=== PATIENT | male | born 1985 | race Caucasian/White ===

== ENCOUNTER 2016-09-18 10:00 | Inpatient (IN) | payer OTHER ==
--- NOTE | ~2016-09-18 | HP ---
Unit #: [id number] #: [id number] Patient: BRO MENDOSA [id number] [place] [address] [id number] MR#: [id number] NAME: BRO MENDOSA ROOM: P255 Age: 30 Sex: M Admission Date: 09/18/2016 : 1985 Attending Physician: Hernesto Meza M.D. Admitting Physician: Hernesto Meza M.D. Primary Care Physician: Primary Care Physician No HISTORY AND PHYSICAL Bro is a 30 year old who was admitted and discharged within the first 24 hours. He was not seen for an H and P. Dictated by... Roseline Saeed P.A.-C. for Ty Arevalo/nick TD: 09/19/2016 20:48 JOB #: [id number] HISTORY AND PHYSICAL Page 1 of 1 X Roseline Saeed HISTORY AND PHYSICAL
--- NOTE | ~2016-09-18 | PN ---
Unit #: [id number] #: [id number] Patient: CHAR RICH [id number] [facility] [address] [place] [address] [id number] MR#: [id number] NAME: CHAR RICH ROOM: P255 Age: 30 Sex: M Admission Date: 09/18/2016 : 1985 Attending Physician: Hernesto Meza M.D. Admitting Physician: Hernesto Meza M.D. Primary Care Physician: Primary Care Physician Virginie LÓPEZ PROGRESS NOTES DATE 09/19/2016 DISCUSSION Mr. Rich is a 30-year-old white male with mood disorder who was seen today and chart was reviewed and case was discussed with the staff. He has been anxious, withdrawn and rather seclusive to himself. Meanwhile, he has been cooperative with treatment recommendations and has been taking medications and tolerating them fairly well with no reported side effects. MENTAL STATUS EXAMINATION Young white male who was casually dressed with fair personal hygiene and appears to be in no acute distress or discomfort. He was awake and alert with intact orientation. His mood was anxious with congruent affect. He denies any suicidal or homicidal ideation. His insight and judgement remains slightly impaired. TREATMENT PLAN 1. Will continue on his current treatment protocol. Will monitor his response to the medications and make further adjustments as needed. 2. Will continue to follow up. Dictated by... Hernesto Meza M.D. IAA/nick TD: 09/20/2016 19:55 JOB #: [id number] Unit #: [id number] #: [id number] Patient: CHAR RICH PROGRESS NOTES Page 1 of 1 X Hernesto Meza MD PROGRESS NOTE
--- NOTE | ~2016-09-18 | PA ---
Unit #: [id number] #: [id number] Patient: CHAR MENDOSA [id number] [facility] [address] [place] [address] [id number] MR#: [id number] NAME: CHAR MENDOSA ROOM: P255 Age: 30 Sex: M Admission Date: 09/18/2016 : 1985 Date of Assessment: 09/18/2016 Attending Physician: Hernesto Meza M.D. Admitting Physician: Hernesto Meza M.D. Primary Care Physician: Primary Care Physician No PSYCHIATRIC ASSESSMENT DATE OF SERVICE 09/18/2016. IDENTIFYING DATA Mr. Mendosa is a 30-year-old single white male, who is a resident of [place], [place], and was self-referred to the hospital on a voluntary basis. CHIEF COMPLAINT "I took a handful of pills." HISTORY OF PRESENT ILLNESS Mr. Mendosa is a 30-year-old white male, who was at [facility] Room due to suicide attempt by taking a handful of pills and the patient indicated that he tried to kill himself yesterday and took pills and cut his wrist and he did not tell the nurse about cutting his wrist and there was no indication of spencer on the wrist and he stated that he took 11 of blood pressure pills one hour before coming to the hospital and stated that he was using methamphetamine for 3 to 4 days and has been thinking of suicide over the past few days and indicated that he is sad being homeless and losing his partner in the last 3 days. ER nurse reports that the patient came to the hospital on 09/17/2016 around 8:00 p.m. alleging that he had swallowed some of the grandmother's pills and has tried to contact with the family, to try to determine what medicine he has took, but the patient indicated that he did not have any contact numbers and later was observed playing games on his phone and was not in a clark and has a history of illness note indicating that he has a history of depression and drug use and presented to the ER for help about one hour after taking grandmother's antihypertensive medication and reported that this is an intentional overdose and he took 11 of those pills. When staff asked to give the grandmother's number, so that they could determine that it is true or not, he stated that he does not have the numbers and then later also observed to be playing games on the phone, but stated that he was feeling very depressed due to recently losing his partner, becoming homeless and stated he felt like he wanted to end it all, so he started cutting himself on the wrist and once again, there were no spencer on the wrist indicating any cuts and as such, appears to be exhibiting some malingering behavior. However, he was refusing to contract for safety and as such, recommendation for inpatient level of care for safety and stabilization was made and the patient was transferred to us. SUBSTANCE ABUSE HISTORY Unit #: [id number] #: [id number] Patient: CHAR MENDOSA The patient reports a history of alcohol and cannabis and opioids and methamphetamine abuse and reports that he has been using 2 joints daily of cannabis and has been using a line of methamphetamine a day for years. PAST PSYCHIATRIC HISTORY The patient has had a history of inpatient psychiatric hospitalizations at different facilities along with outpatient treatment. Review of the medical records indicate currently he is not active in any treatment program, is not seeing a psychiatrist, and is not taking any psychotropic medications. PAST MEDICAL HISTORY Asthma. ALLERGIES Phenytoin. PERSONAL AND SOCIAL HISTORY A 30-year-old white male, who reports that he is single and unemployed and essentially homeless and has poor social support system. MENTAL STATUS EXAMINATION Young white male, who was casually dressed with a fair personal hygiene and appears to be in no acute distress or discomfort. He was awake and alert on interaction with intact orientation to time, place, and person. His mood was anxious with a congruent affect. He reports having suicidal ideations, but denies any homicidal ideations, and also denies any auditory or visual hallucinations. His insight and judgment remain significantly impaired. DIAGNOSTIC IMPRESSION Psychiatric: Major depressive disorder, recurrent, moderate, without psychotic features. Cannabis abuse, moderate. Methamphetamine abuse, moderate. Medical: Asthma. Stressors: Mild psychosocial stressors. TREATMENT PLAN 1. The patient has presented with a history of mood disorder and has been decompensating and will need inpatient hospitalization for safety and stabilization. We will start him back on his home medications. We will monitor response and make further adjustments as needed. 2. Supportive therapy was provided to the patient. 3. Safe, structured, and nourishing environment will be reported. ESTIMATED LENGTH OF STAY 5 to 7 days. ABILITY TO HELP SELF Limited. WILLINGNESS TO HELP SELF The patient appears to be willing to help self. STRENGTHS 1. Communicative. Unit #: [id number] #: [id number] Patient: CHAR MENDOSA 2. Cooperative. PROBLEMS 1. Chronic dysphoric symptoms. 2. Chronic chemical dependency. 3. Poor social support system. DISCHARGE CRITERIA This will be contingent upon the patient's ability to show resolution of his depression and anxiety and his ability to stay safe to himself, particularly after discharge from the hospital. Dictated by... Hernesto Meza M.D. TAMIKA/everett TD: 09/19/2016 07:27 JOB #: [id number] PSYCHIATRIC ASSESSMENT Page 1 of 1 X Hernesto Meza MD PSYCHIATRIC ASSESSMENT
--- NOTE | ~2016-09-18 | DS ---
Unit #: [id number] #: [id number] Patient: CHAR RICH [id number] [facility] [address] [place] [address] [id number] MR#: [id number] NAME: CHAR RICH ROOM: [facility] Age: 31 Sex: M Admission Date: 09/18/2016 : 1985 Discharge Date: 09/19/2016 Attending Physician: Hernesto Meza M.D. Primary Care Physician: Primary Care Physician No DISCHARGE SUMMARY IDENTIFYING DATA Mr. Rich is a 30-year-old white male with history of mood disorder, who was self-referred to the hospital. DISCHARGE DIAGNOSES Psychiatric: Major depressive disorder, recurrent, moderate, without psychotic features. Medical: None. Stressors: Moderate psychosocial stressors. HISTORY OF PRESENT ILLNESS Please see initial psychiatric evaluation for details. PAST PSYCHIATRIC HISTORY Please see initial psychiatric evaluation for details. PAST MEDICAL HISTORY Please see initial psychiatric evaluation for details. HOSPITAL COURSE The patient was admitted to the adult psychiatric unit at [facility] and was oriented to the hospital environment. Routine p.r.n. medications were initiated, and he was started back on his home medication and Wellbutrin XL 150 mg was initiated as an antidepressant and was closely monitored. He was taking the medications regularly. However, he then decided that he wanted to leave against medical advice and was encouraged to complete the treatment program, he refused to accept recommendation of the treatment team and was denying any suicidal ideations, intent, or plan and was not meeting criteria for involuntary psychiatric hospitalization and as such, it was decided that he will be discharged home and will continue treatment on an outpatient basis. DISCHARGE MEDICATIONS None. DISCHARGE CONDITION Stable. PROGNOSIS Guarded. Dictated by... Hernesto Meza M.D. Unit #: [id number] #: [id number] Patient: CHAR RICH TAMIKA/modl TD: 10/30/2016 23:17 JOB #: [id number] DISCHARGE SUMMARY Page 1 of 1 X Hernesto Meza MD X DISCHARGE SUMMARY
[~2016-09-18 10:00] MED LIST: KEPPRA750 MG PO; ZITHROMAX PO
== END 2016-09-19 08:00 | disposition left against medical advice (07) | DRG 885 ==
LOC: P2L 15:52
DX: F33.1 Major depressive disorder, recurrent, moderate (principal); R45.851 Suicidal ideations; F15.20 Other stimulant dependence, uncomplicated; F12.20 Cannabis dependence, uncomplicated; J45.909 Unspecified asthma, uncomplicated; Z59.0 Homelessness; Z88.8 Allergy status to other drugs, medicaments and biological substances; T46.5X2D Poisoning by other antihypertensive drugs, intentional self-harm, subsequent encounter